=== PATIENT | male | born 1945 | race Caucasian/White ===

== ENCOUNTER 2016-11-22 17:21 | Emergency (ER) | payer MEDICARE ==
[2016-11-22] MEDS ORDERED: CLINDAMYCIN 150 MG CAP PO ONE ×2 (18:04)
--- NOTE | 2016-11-22 18:23 | Emergency Department Record ---
History of Present Illness - General Chief complaint: Extremity Problem Stated complaint: FINGER INJURY ON LT HAND Time Seen by Provider: 11/22/16 17:47 Source: Patient Mode of Arrival: Ambulatory Limitations: No limitations - History of Present Illness Initial comments: pt has a small area on l middle finger that was like a pimple that is getting more sore with spreading redness Complaint: Extremity pain, Extremity swelling Onset/Timin -: Days(s) Location: Left, Hand Severity scale (1-10): 4 Quality: Aching, Other Consistency: Constant Improves with: Nothing Worsens with: Palpation Associated Symptoms: Denies other symptoms - Related Data Home Medications Medication Instructions Recorded Confirmed Last Taken Aspirin [Aspirin EC] 81 mg PO DAILY 05/11/15 11/22/16 11/22/16 Atenolol 100 mg PO DAILY 05/11/15 11/22/16 11/22/16 Calcium Carbonate/Vitamin D3 1 each PO DAILY 05/11/15 11/22/16 11/22/16 [Caltrate 600 + D Tablet] Captopril [Capoten] 100 mg PO DAILY 05/11/15 11/22/16 11/22/16 Clonidine HCl 0.1 mg PO DAILY 05/11/15 11/22/16 11/22/16 Clopidogrel Bisulfate [Clopidogrel] 75 mg PO DAILY 05/11/15 11/22/16 11/22/16 Clotrimazole/Betamethasone Dip 45 gm TP ASDIR PRN 05/11/15 11/22/16 11/22/16 [Clotrimazole-Betamethasone Crm] Glyburide 5 mg PO BID 05/11/15 11/22/16 11/22/16 Insulin Detemir [Levemir Flextouch] 15 unit SQ QHS 05/11/15 11/22/16 11/22/16 Isosorbide Mononitrate [Imdur] 60 mg PO DAILY 05/11/15 11/22/16 11/22/16 Magnesium Oxide [Mag Ox] 400 mg PO DAILY 05/11/15 11/22/16 11/22/16 Metformin HCl [Metformin HCl ER] 1,000 mg PO BID 05/11/15 11/22/16 11/22/16 Multivit-Min/FA/Lycopene/Lut 1 each PO DAILY 05/11/15 11/22/1617 [Centrum Silver Tablet] [place], Insulin Disposable 1 each MC DAILY 05/11/15 11/22/16 11/22/16 [Novofine] Nitroglycerin [Nitrodur] 1 ea TD ASDIR PRN 05/11/15 11/22/16 Unknown [place]-3/Dha/Epa/Fish Oil [Fish Oil] 500 mg PO DAILY 05/11/15 11/22/16 11/22/16 Penicillin V Potassium 500 mg PO DAILY 05/11/15 11/22/16 11/22/16 Potassium Chloride [Klor-Con] 10 meq PO BID 05/11/15 11/22/16 11/22/16 Pravastatin Sodium [Pravachol] 40 mg PO DAILY 05/11/15 11/22/16 11/22/16 Previous Rx's Medication Instructions Recorded Clindamycin HCl [Cleocin HCl] 300 mg PO QID #40 capsule 11/22/16 Allergies Allergy/AdvReac Type Severity Reaction Status Date / Time No Known Drug Allergies Allergy Verified 05/11/15 11:52 Travel Screening - Travel/Exposure Within Last 30 Days Have you traveled within the last 30 days?: No - Travel/Exposure Within Last Year Have you traveled outside the [place] in the last year?: No - Additonal Travel Details Have you been exposed to anyone with a communicable illness?: No - Travel Symptoms Symptom Screening: None Review of Systems Reviewed: No additional complaints except as noted below Constitutional: Reports: As per HPI. Denies: Chills, Fever, Malaise, Night sweats, Weakness, Weight change Eyes: Reports: As per HPI. Denies: Eye discharge, Eye pain, Photophobia, Vision change ENT: Reports: As per HPI. Denies: Congestion, Dental pain, Ear pain, Epistaxis , Hearing loss, Throat pain Respiratory: Reports: As per HPI. Denies: Cough, Dyspnea, Hemoptysis, Stridor, Wheezes Cardiovascular: Reports: As per HPI. Denies: Arrhythmia, Chest pain, Dyspnea on exertion, Edema, Murmurs, Orthopnea, Palpitations, Paroxysmal nocturnal dyspnea, Rheumatic Fever, Syncope Endocrine: Reports: As per HPI. Denies: Fatigue, Heat or cold intolerance, Polydipsia, Polyuria Gastrointestinal: Reports: As per HPI. Denies: Abdominal pain, Constipation, Diarrhea, Hematemesis, Hematochezia, Melena, Nausea, Vomiting Genitourinary: Reports: As per HPI. Denies: Dysuria, Frequency, Hematuria, Incontinence, Retention, Testicular pain, Testicular mass, Urgency Musculoskeletal: Reports: As per HPI. Denies: Arthralgia, Back pain, Gout, Joint swelling, Myalgia, Neck pain Skin: Reports: As per HPI. Denies: Bruising, Change in color, Change in hair/ nails, Lesions, Pruritus, Rash Neurological: Reports: As per HPI. Denies: Abnormal gait, Confusion, Headache, Numbness, Paresthesias, Seizure, Tingling, Tremors, Vertigo, Weakness Psychiatric: Reports: As per HPI. Denies: Anxiety, Auditory hallucinations, Depression, Homicidal thoughts, Suicidal thoughts, Visual hallucinations Hematological/Lymphatic: Reports: As per HPI. Denies: Anemia, Blood Clots, Easy bleeding, Easy bruising, Swollen glands Past Medical History - SOCIAL HISTORY Smoking Status: Former smoker Alcohol Use: None Drug Use: None - RESPIRATORY Hx Respiratory Disorders: No - CARDIOVASCULAR Hx Cardio Disorders: Yes Hx Cardiac Cath: Yes Hx Heart Attack: Yes Hx Hypertension: Yes Hx Coronary Artery Bypass Graft: Yes (x4) - NEURO Hx Neuro Disorders: No - GI Hx GI Disorders: Yes Hx of Polyps: Yes - Hx Genitourinary Disorders: Yes Hx Bladder Problem: Yes (bladder infection -> cystoscopy) - ENDOCRINE Hx Endocrine Disorders: Yes - MUSCULOSKELETAL Hx Musculoskeletal Disorders: No - PSYCH Hx Psych Problems: No - HEMATOLOGY/ONCOLOGY Hx Hematology/Oncology Disorders: Yes Hx Bruising: Yes (plavix) Family Medical History Any Significant Family History?: No Hx Cancer: Mother *Cancer Comment: lung Hx Diabetes: Grandparents Hx Heart Disease: Father *Heart Comment: [place] Physical Exam - General General Appearance: Alert, Oriented x3, Cooperative, Mild distress - Head Head exam: Normal inspection - Eye Eye exam: Normal appearance, PERRL, EOMI Pupils: Normal accommodation - ENT ENT exam: Normal exam, Mucous membranes moist, Normal external ear exam, Normal orophraynx Ear exam: Normal external inspection. negative: External canal tenderness Nasal Exam: Normal inspection. negative: Discharge, Sinus tenderness Mouth exam: Normal external inspection, Tongue normal Teeth exam: Normal inspection. negative: Dental caries Throat exam: Normal inspection. negative: Tonsillar erythema, Tonsillar exudate - Neck Neck exam: Normal inspection, Full ROM. negative: Tenderness - Respiratory Respiratory exam: Normal lung sounds bilaterally. negative: Respiratory distress - Cardiovascular Cardiovascular Exam: Regular rate, Normal rhythm, Normal heart sounds - GI/Abdominal GI/Abdominal exam: Soft, Normal bowel sounds. negative: Tenderness - Rectal Rectal exam: Deferred - exam: Deferred - Extremities Extremities exam: Normal inspection, Full ROM, Normal capillary refill, Tenderness, Other (erythema, mild swelling) Image of Hand: 1 - swelling w small pustule, tender - Back Back exam: Reports: Normal inspection, Full ROM. Denies: Muscle spasm, Rash noted, Tenderness - Neurological Neurological exam: Alert, CN II-XII intact, Normal gait, Oriented X3 - Psychiatric Psychiatric exam: Normal affect, Normal mood - Skin Skin exam: Dry, Intact, Normal color, Warm Course Vital Signs 11/22/16 17:25 Temperature 98.3 F Pulse Rate 70 Respiratory 16 Rate Blood Pressure 186/92 Pulse Ox 98 Disposition Disposition: Discharge Clinical Impression: Cellulitis Qualifiers: Site of cellulitis: extremity Site of cellulitis of extremity: finger Laterality: left Qualified Code(s): L03.012 - Cellulitis of left finger Disposition: Home, Self-Care Condition: (1) Good Instructions: Cellulitis (ED) Additional Instructions: recheck in the morning. return sooner if worse Prescriptions: Clindamycin HCl [Cleocin HCl] 300 mg PO QID #40 capsule Forms: Patient Portal Access
== END 2016-11-22 18:41 | disposition home or self-care (01) ==
LOC: ER 17:21
DX: L03.012 Cellulitis of left finger (principal)
CPT/HCPCS: 99283

== ENCOUNTER 2016-11-23 06:59 | Emergency (ER) | payer MEDICARE ==
[2016-11-23] MEDS ORDERED: CLINDAMYCIN 150 MG CAP PO ONE (07:13)
--- NOTE | 2016-11-23 07:16 | Emergency Department Record ---
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 Patient reports mild increase in the swelling to the dorsum of the hand since being seen last night, reports redness has not spread however. Patient was started on oral Clindamyin yesterday. Patient denies fevers, chills, or weakness symptoms. Patient does report history of Type I DM. MD Complaint: Wound re-check Onset/Timin -: Days(s) Initial Visit For: Cellulitis Returns Today for: Wound recheck Symptoms Since Prior Visit: Worsening swelling Associated Symptoms: None - Related Data Home Medications Medication Instructions Recorded Confirmed Last Taken Aspirin [Aspirin EC] 81 mg PO DAILY 05/11/15 11/23/16 11/22/16 Atenolol 100 mg PO DAILY 05/11/15 11/23/16 11/22/16 Calcium Carbonate/Vitamin D3 1 each PO DAILY 05/11/15 11/23/16 11/22/16 [Caltrate 600 + D Tablet] Captopril [Capoten] 100 mg PO DAILY 05/11/15 11/23/16 11/22/16 Clonidine HCl 0.1 mg PO DAILY 05/11/15 11/23/16 11/22/16 Clopidogrel Bisulfate [Clopidogrel] 75 mg PO DAILY 05/11/15 11/23/16 11/22/16 Clotrimazole/Betamethasone Dip 45 gm TP ASDIR PRN 05/11/15 11/23/16 11/22/16 [Clotrimazole-Betamethasone Crm] Glyburide 5 mg PO BID 05/11/15 11/23/16 11/22/16 Insulin Detemir [Levemir Flextouch] 15 unit SQ QHS 05/11/15 11/23/16 11/22/16 Isosorbide Mononitrate [Imdur] 60 mg PO DAILY 05/11/15 11/23/16 11/22/16 Magnesium Oxide [Mag Ox] 400 mg PO DAILY 05/11/15 11/23/1617 Metformin HCl [Metformin HCl ER] 1,000 mg PO BID 05/11/15 11/23/16 11/22/16 Multivit-Min/FA/Lycopene/Lut 1 each PO DAILY 05/11/15 11/23/16 11/22/16 [Centrum Silver Tablet] [place], Insulin Disposable 1 each MC DAILY 05/11/15 11/23/16 11/22/16 [Novofine] Nitroglycerin [Nitrodur] 1 ea TD ASDIR PRN 05/11/15 11/23/16 11/22/16 [place]-3/Dha/Epa/Fish Oil [Fish Oil] 500 mg PO DAILY 05/11/15 11/23/16 11/22/16 Penicillin V Potassium 500 mg PO DAILY 05/11/15 11/23/16 11/22/16 Potassium Chloride [Klor-Con] 10 meq PO BID 05/11/15 11/23/16 11/22/16 Pravastatin Sodium [Pravachol] 40 mg PO DAILY 05/11/15 11/23/16 11/22/16 Previous Rx's Medication Instructions Recorded Clindamycin HCl [Cleocin HCl] 300 mg PO QID #40 capsule 11/22/16 Allergies Allergy/AdvReac Type Severity Reaction Status Date / Time No Known Drug Allergies Allergy Verified 05/11/15 11:52 Travel Screening - Travel/Exposure Within Last 30 Days Have you traveled within the last 30 days?: No - Travel/Exposure Within Last Year Have you traveled outside the [place] in the last year?: No - Additonal Travel Details Have you been exposed to anyone with a communicable illness?: No - Travel Symptoms Symptom Screening: None Review of Systems Constitutional: Denies: Chills, Fever, Malaise, Night sweats Eyes: Denies: Eye discharge, Eye pain, Photophobia ENT: Denies: Congestion, Ear pain, Epistaxis Respiratory: Denies: Cough, Dyspnea, Hemoptysis Cardiovascular: Denies: Chest pain, Dyspnea on exertion Endocrine: Denies: Fatigue, Heat or cold intolerance Gastrointestinal: Denies: Abdominal pain, Nausea, Vomiting Genitourinary: Denies: Incontinence, Retention Musculoskeletal: Denies: Arthralgia, Back pain Skin: Reports: Rash. Denies: Bruising, Change in color Neurological: Denies: Abnormal gait, Confusion, Headache Psychiatric: Denies: Anxiety Hematological/Lymphatic: Denies: Anemia, Blood Clots Past Medical History - SOCIAL HISTORY Smoking Status: Former smoker Alcohol Use: None Drug Use: None - RESPIRATORY Hx Respiratory Disorders: No - CARDIOVASCULAR Hx Cardio Disorders: Yes Hx Cardiac Cath: Yes Hx Heart Attack: Yes Hx Hypertension: Yes Hx Coronary Artery Bypass Graft: Yes (x4) - NEURO Hx Neuro Disorders: No - GI Hx GI Disorders: Yes Hx of Polyps: Yes - Hx Genitourinary Disorders: Yes Hx Bladder Problem: Yes (bladder infection -> cystoscopy) - ENDOCRINE Hx Endocrine Disorders: Yes - MUSCULOSKELETAL Hx Musculoskeletal Disorders: No - PSYCH Hx Psych Problems: No - HEMATOLOGY/ONCOLOGY Hx Hematology/Oncology Disorders: Yes Hx Bruising: Yes (plavix) Family Medical History Any Significant Family History?: No Hx Cancer: Mother *Cancer Comment: lung Hx Diabetes: Grandparents Hx Heart Disease: Father *Heart Comment: [place] Physical Exam - General General Appearance: Alert, Oriented x3, Cooperative, No acute distress Limitations: No limitations - Head Head exam: Atraumatic, Normocephalic, Normal inspection Head exam detail: negative: Abrasion, Contusion, Gallo's sign, General tenderness, Hematoma, Laceration - Eye Eye exam: Normal appearance. negative: Conjunctival injection, Periorbital swelling, Periorbital tenderness, Scleral icterus - ENT Ear exam: negative: Auricular hematoma, Auricular trauma Nasal Exam: negative: Active bleeding, Discharge, Dried blood Mouth exam: negative: Drooling, Laceration, Muffled voice, Tongue elevation - Neck Neck exam: Normal inspection. negative: Meningismus, Tenderness - Respiratory Respiratory exam: Normal lung sounds bilaterally. negative: Respiratory distress, Rhonchi, Stridor, Wheezes - Cardiovascular Cardiovascular Exam: Regular rate, Normal rhythm, Normal heart sounds Peripheral Pulses: 3+: Radial (L) - GI/Abdominal GI/Abdominal exam: Soft. negative: Rebound, Rigid, Tenderness - Rectal Rectal exam: Deferred - exam: Deferred - Extremities Extremities exam: Tenderness, Other (Mild STS and erythema to the left middle digit with a small lesion draining clear fluid present, STS extends to the mid- dorsum of the left hand. No evidence for tenosynovitis to the finger on examination, and compartments are soft on examination. FROM of all digits on examination as well.). negative: Calf tenderness, Pedal edema - Back Back exam: Denies: CVA tenderness (R), CVA tenderness (L) - Neurological Neurological exam: Alert, Normal gait, Oriented X3 - Psychiatric Psychiatric exam: Normal affect, Normal mood - Skin Skin exam: Erythema. negative: Abrasion Type of lesion: negative: abrasion Course Vital Signs 11/23/16 07:02 Temperature 97.9 F Pulse Rate 73 Respiratory 16 Rate Pulse Ox 96 - Reevaluation(s) Reevaluation #1: 11/23/16 07:21 Patient seen and examined, reports STS is mildly worsened, however erythema has not traveled more proximally or spread. Patient has no signs of tenosynovitis on examination. Patient appears stable for discharge home with instructions to continue clindamycin 4 times daily with a instructions to return to ED in 24 hours for repeat evaluation. Patient agrees with the plan as discussed. Disposition Disposition: Discharge Clinical Impression: Cellulitis Qualifiers: Site of cellulitis: extremity Site of cellulitis of extremity: upper extremity Laterality: left Qualified Code(s): L03.114 - Cellulitis of left upper limb Disposition: Home, Self-Care Condition: (2) Stable Instructions: Cellulitis (ED) Additional Instructions: Return to ED in 24 hours for a recheck on your hand infection, sooner if symptoms worsen. Clindamycin as directed. Follow-up with your family doctor in 1-3 days as directed. Forms: Patient Portal Access Time of Disposition: 07:15
== END 2016-11-23 07:28 | disposition home or self-care (01) ==
LOC: ER 06:59
DX: L03.012 Cellulitis of left finger (principal)
CPT/HCPCS: 99282

== ENCOUNTER 2016-11-24 08:06 | Emergency (ER) | payer MEDICARE ==
--- NOTE | 2016-11-24 08:12 | Emergency Department Record ---
History of Present Illness - General Chief Complaint: Recheck - Other Stated Complaint: RECHECK HAND Time Seen by Provider: 11/24/16 08:11 Source: Patient Mode of arrival: Ambulatory Limitations: No limitations - History of Present Illness Initial Comments: 71 yo male returns for repeat evaluation of an infection involving his left hand. Patient reports that his symptoms began as a "pimple" to the left middle digit, had spread to the dorsum of his left hand with symptoms of swelling and redness. Patient has been taking Clindamycin for his symptoms, denies any worsening of his symptoms since his evaluation 24 hours ago, denies fevers, chills, or other systemic symptoms. MD Complaint: Wound re-check Onset/Timin -: Days(s) Initial Visit For: Cellulitis Returns Today for: Cellulitis follow-up Symptoms Since Prior Visit: No new symptoms Associated Symptoms: None Treatments Prior to Arrival: Given antibiotics on initial visit - Related Data Home Medications Medication Instructions Recorded Confirmed Last Taken Aspirin [Aspirin EC] 81 mg PO DAILY 05/11/15 11/23/16 11/22/16 Atenolol 100 mg PO DAILY 05/11/15 11/23/16 11/22/16 Calcium Carbonate/Vitamin D3 1 each PO DAILY 05/11/15 11/23/16 11/22/16 [Caltrate 600 + D Tablet] Captopril [Capoten] 100 mg PO DAILY 05/11/15 11/23/16 11/22/16 Clonidine HCl 0.1 mg PO DAILY 05/11/15 11/23/16 11/22/16 Clopidogrel Bisulfate [Clopidogrel] 75 mg PO DAILY 05/11/15 11/23/16 11/22/16 Clotrimazole/Betamethasone Dip 45 gm TP ASDIR PRN 05/11/15 11/23/16 11/22/16 [Clotrimazole-Betamethasone Crm] Glyburide 5 mg PO BID 05/11/15 11/23/16 11/22/16 Insulin Detemir [Levemir Flextouch] 15 unit SQ QHS 05/11/15 11/23/16 11/22/16 Isosorbide Mononitrate [Imdur] 60 mg PO DAILY 05/11/15 11/23/16 11/22/16 Magnesium Oxide [Mag Ox] 400 mg PO DAILY 05/11/15 11/23/16 11/22/16 Metformin HCl [Metformin HCl ER] 1,000 mg PO BID 05/11/15 11/23/16 11/22/16 Multivit-Min/FA/Lycopene/Lut 1 each PO DAILY 05/11/15 11/23/16 11/22/16 [Centrum Silver Tablet] [place], Insulin Disposable 1 each MC DAILY 05/11/15 11/23/16 11/22/16 [Novofine] Nitroglycerin [Nitrodur] 1 ea TD ASDIR PRN 05/11/15 11/23/16 11/22/16 [place]-3/Dha/Epa/Fish Oil [Fish Oil] 500 mg PO DAILY 05/11/15 11/23/16 11/22/16 Penicillin V Potassium 500 mg PO DAILY 05/11/15 11/23/16 11/22/16 Potassium Chloride [Klor-Con] 10 meq PO BID 05/11/15 11/23/16 11/22/16 Pravastatin Sodium [Pravachol] 40 mg PO DAILY 05/11/15 11/23/16 11/22/16 Previous Rx's Medication Instructions Recorded Clindamycin HCl [Cleocin HCl] 300 mg PO QID #40 capsule 11/22/16 Allergies Allergy/AdvReac Type Severity Reaction Status Date / Time No Known Drug Allergies Allergy Verified 05/11/15 11:52 Review of Systems Constitutional: Denies: Chills, Fever, Malaise, Night sweats, Weakness Eyes: Denies: Eye discharge, Eye pain ENT: Denies: Congestion, Ear pain Respiratory: Denies: Cough, Dyspnea Cardiovascular: Denies: Chest pain, Dyspnea on exertion Endocrine: Denies: Fatigue, Heat or cold intolerance Gastrointestinal: Denies: Nausea, Vomiting Genitourinary: Denies: Incontinence, Retention Musculoskeletal: Denies: Arthralgia, Back pain, Gout, Joint swelling Skin: Reports: Rash. Denies: Bruising, Change in color Neurological: Denies: Abnormal gait, Confusion, Headache, Seizure Psychiatric: Denies: Anxiety Hematological/Lymphatic: Denies: Anemia, Blood Clots Past Medical History - SOCIAL HISTORY Smoking Status: Former smoker Drug Use: None - RESPIRATORY Hx Respiratory Disorders: No - CARDIOVASCULAR Hx Cardio Disorders: Yes Hx Cardiac Cath: Yes Hx Heart Attack: Yes Hx Hypertension: Yes Hx Coronary Artery Bypass Graft: Yes (x4) - NEURO Hx Neuro Disorders: No - GI Hx GI Disorders: Yes Hx of Polyps: Yes - Hx Genitourinary Disorders: Yes Hx Bladder Problem: Yes (bladder infection -> cystoscopy) - ENDOCRINE Hx Endocrine Disorders: Yes - MUSCULOSKELETAL Hx Musculoskeletal Disorders: No - PSYCH Hx Psych Problems: No - HEMATOLOGY/ONCOLOGY Hx Hematology/Oncology Disorders: Yes Hx Bruising: Yes (plavix) Family Medical History Hx Cancer: Mother *Cancer Comment: lung Hx Diabetes: Grandparents Hx Heart Disease: Father *Heart Comment: [place] Physical Exam - General General Appearance: Alert, Oriented x3, Cooperative, No acute distress Limitations: No limitations - Head Head exam: Atraumatic, Normocephalic, Normal inspection Head exam detail: negative: Abrasion, Contusion, Gallo's sign, General tenderness, Hematoma, Laceration - Eye Eye exam: Normal appearance. negative: Conjunctival injection, Periorbital swelling, Periorbital tenderness, Scleral icterus - ENT Ear exam: negative: Auricular hematoma, Auricular trauma Nasal Exam: negative: Active bleeding, Discharge, Dried blood, Foreign body Mouth exam: negative: Drooling, Laceration, Muffled voice, Tongue elevation - Neck Neck exam: Normal inspection. negative: Meningismus, Tenderness - Respiratory Respiratory exam: Normal lung sounds bilaterally. negative: Rales, Respiratory distress, Rhonchi, Stridor - Cardiovascular Cardiovascular Exam: Regular rate, Normal rhythm, Normal heart sounds - GI/Abdominal GI/Abdominal exam: Soft. negative: Rebound, Rigid, Tenderness - Rectal Rectal exam: Deferred - exam: Deferred - Extremities Extremities exam: Tenderness, Other (Improved erythema and STS to the dorsum of the left hand, small focal area of erythema to the middle digit without abscess present. No evidence for tenosynovitis on examination, FROM present. Compartments are soft on examination.). negative: Calf tenderness, Pedal edema - Back Back exam: Denies: CVA tenderness (R), CVA tenderness (L) - Neurological Neurological exam: Alert, Normal gait, Oriented X3 - Psychiatric Psychiatric exam: Normal affect, Normal mood - Skin Skin exam: Erythema, Intact, Warm Type of lesion: Other (cellulutis) Distribution of rash: LUE Description of rash: Confluent Course - Reevaluation(s) Reevaluation #1: 11/24/16 08:16 Symptoms appears mildly improved from examination 24 hours prior, no evidence for tenosynovitis on examination. Patient appears stable for discharge with continued outpatient treatment with return for any worsening of his symptoms and instructions to follow-up with his PCP in 3-5 days as directed. Disposition Disposition: Discharge Clinical Impression: Cellulitis Qualifiers: Site of cellulitis: extremity Site of cellulitis of extremity: upper extremity Laterality: left Qualified Code(s): L03.114 - Cellulitis of left upper limb Instructions: Cellulitis (ED) Additional Instructions: Return to ED if your symptoms worsen or if you have any concerns. Follow-up with your family doctor in 3-5 days as directed. Continue Clindamycin as prescribed. Forms: Patient Portal Access Time of Disposition: 08:12
== END 2016-11-24 08:21 | disposition home or self-care (01) ==
LOC: ER 08:06
DX: L03.012 Cellulitis of left finger (principal)
CPT/HCPCS: 99282

== ENCOUNTER 2017-05-23 19:57 | Emergency (ER) | payer MEDICARE ==
[2017-05-23] MEDS ORDERED: CEPHALEXIN 500 MG CAPSULE PO STA ×2 (20:18→20:29)
--- NOTE | 2017-05-23 20:18 | Emergency Department Record ---
History of Present Illness - General Chief complaint: Lower Extremity Pain Stated complaint: RIGHT LEG PAIN Time Seen by Provider: 05/23/17 20:11 Source: Patient Mode of Arrival: Ambulatory Limitations: No limitations - History of Present Illness Initial comments: 71 yo male presents with an injury to the right leg 4 days ago. He backed into a picnic table. He had a bruise/hematoma to the posterior lower leg. He has a history of prior cellulitis. He noted some leg redness and warmth. No definite fevers. No other cough, shortness or breath, chest pain, nausea, vomiting, diarrhea, dysuria. No numbness, weakness, or changes in function. He has a small superfical blood blister on the posterior leg. No drainage. He is on Plavix and prone to bruising. MD Complaint: Extremity pain Onset/Timin -: Days(s) Location: Right, Lower Leg History of Same: Yes Radiation: None Severity scale (1-10): 6 Quality: Aching Consistency: Constant Improves with: Cold therapy, Elevation Worsens with: Walking, Weight bearing Associated Symptoms: Fever - Related Data Previous Rx's Medication Instructions Recorded Cephalexin [Keflex] 500 mg PO QID #40 cap 05/23/17 Allergies Allergy/AdvReac Type Severity Reaction Status Date / Time No Known Drug Allergies Allergy Unverified 02/11/17 12:48 Travel Screening - Travel/Exposure Within Last 30 Days Have you traveled within the last 30 days?: No - Travel/Exposure Within Last Year Have you traveled outside the [place] in the last year?: No - Additonal Travel Details Have you been exposed to anyone with a communicable illness?: No - Travel Symptoms Symptom Screening: None Review of Systems Constitutional: Denies: Chills, Fever, Malaise, Weakness Eyes: Denies: Eye discharge ENT: Denies: Congestion, Throat pain Respiratory: Denies: Cough, Dyspnea, Hemoptysis Cardiovascular: Denies: Chest pain, Palpitations, Syncope Endocrine: Denies: Fatigue, Polydipsia, Polyuria Gastrointestinal: Denies: Abdominal pain, Diarrhea, Nausea, Vomiting Genitourinary: Denies: Dysuria, Frequency, Hematuria Musculoskeletal: Reports: As per HPI, Myalgia. Denies: Arthralgia, Back pain, Neck pain Skin: Reports: As per HPI, Bruising, Change in color Neurological: Denies: Headache, Numbness, Weakness Psychiatric: Denies: Anxiety Hematological/Lymphatic: Denies: Blood Clots, Easy bleeding, Easy bruising, Swollen glands Past Medical History - SOCIAL HISTORY Smoking Status: Former smoker Alcohol Use: Occasional Drug Use: None - RESPIRATORY Hx Respiratory Disorders: No - CARDIOVASCULAR Hx Cardio Disorders: Yes Hx Cardiac Cath: Yes Hx Heart Attack: Yes Hx Hypertension: Yes Hx Coronary Artery Bypass Graft: Yes (x4) - NEURO Hx Neuro Disorders: No - GI Hx GI Disorders: Yes Hx of Polyps: Yes - Hx Genitourinary Disorders: Yes Hx Bladder Problem: Yes (bladder infection -> cystoscopy) - ENDOCRINE Hx Endocrine Disorders: Yes - MUSCULOSKELETAL Hx Musculoskeletal Disorders: No - PSYCH Hx Psych Problems: No - HEMATOLOGY/ONCOLOGY Hx Hematology/Oncology Disorders: Yes Hx Bruising: Yes (plavix) Family Medical History Any Significant Family History?: No Hx Cancer: Mother *Cancer Comment: lung Hx Diabetes: Grandparents Hx Heart Disease: Father *Heart Comment: [place] Physical Exam - General General Appearance: Alert, Oriented x3, Cooperative, No acute distress Limitations: No limitations - Head Head exam: Atraumatic, Normocephalic, Normal inspection - Eye Eye exam: Normal appearance. negative: Conjunctival injection, Periorbital swelling - ENT ENT exam: Normal exam Ear exam: Normal external inspection Nasal Exam: Normal inspection - Neck Neck exam: Normal inspection, Full ROM. negative: Tenderness - Respiratory Respiratory exam: Normal lung sounds bilaterally. negative: Respiratory distress - Cardiovascular Cardiovascular Exam: Regular rate, Normal rhythm, Normal heart sounds Peripheral Pulses: 2+: Radial (L) - Rectal Rectal exam: Deferred - exam: Deferred - Extremities Extremities exam: Full ROM, Normal capillary refill, Pedal edema (mild), Tenderness (mild at the bruising site). negative: Normal inspection, Calf tenderness, Joint swelling Image of Full Body: 1 - Bruising to the proximal calf with quarter size superfical blister, mild calf swelling with warmth and mild erythema, no pain with foot flexion, negative Quinton's sign, intact brisk pulses, intact sensation - Back Back exam: Denies: CVA tenderness (R), CVA tenderness (L) - Neurological Neurological exam: Alert, Oriented X3 - Psychiatric Psychiatric exam: negative: Agitated, Anxious - Skin Skin exam: Other (Bruising and erythema) Course Vital Signs 05/23/17 20:01 Temperature 99.7 F H Pulse Rate 77 Respiratory 20 Rate Blood Pressure 155/82 Pulse Ox 100 - Reevaluation(s) Reevaluation #1: The examination is consistent with an early mild cellulitis, no signs of DVT, he has bruising and mild swelling likely from being on Plavix and aspirin, no signs of compartment syndrome, The patient was given Keflex in the ED He has follow at Thursday. He will return if there is any worsening or new concerns. 05/23/17 20:25 05/23/17 20:29 Disposition Disposition: Discharge Clinical Impression: Cellulitis Qualifiers: Site of cellulitis: extremity Site of cellulitis of extremity: lower extremity Laterality: right Qualified Code(s): L03.115 - Cellulitis of right lower limb Disposition: Home, Self-Care Condition: (1) Good Instructions: Cellulitis (ED) Additional Instructions: Return to the ER if you have fever, increased redness, warmth, swelling or any other new symptoms or concerns Follow up on Thursday as scheduled Take the Keflex every 6 hours Prescriptions: Cephalexin [Keflex] 500 mg PO QID #40 cap Forms: Patient Portal Access Time of Disposition: 20:26 Quality - Quality Measures Quality Measures: N/A - Blood Pressure Screening Does Patient Have Any of the Following: No Blood Pressure Classification: Pre-Hypertensive BP Reading Systolic Measurement: 155 Diastolic Measurement: 82 Screening for High Blood Pressure: < Pre-Hypertensive BP, F/U Documented > [ G8950] Pre-Hypertensive Follow-up Interventions: Referral to alternative/primary care provider.
== END 2017-05-23 20:49 | disposition home or self-care (01) ==
LOC: ER 19:57
DX: L03.115 Cellulitis of right lower limb (principal); M79.661 Pain in right lower leg
CPT/HCPCS: 99282

== ENCOUNTER 2017-05-28 22:48 | Emergency (ER) | payer MEDICARE ==
[2017-05-28] MEDS ORDERED: IPRATROPIUM/ALBUTEROL (0.5MG/3MG) NEB INH ONE (23:01)
[2017-05-28] MEDS ORDERED: METHYLPREDNISOLONE PF 125MG/VIAL IVP ONE (23:12)
[2017-05-28] MEDS ORDERED: 0.9 % SODIUM CHLORIDE 1000ML 1,000 ML IV SCH (23:15)
--- NOTE | 2017-05-28 23:18 | Emergency Department Record ---
History of Present Illness - General Chief Complaint: Cough Stated Complaint: COUGH AND CARTER Time Seen by Provider: 05/28/17 23:06 Source: Patient Mode of Arrival: Ambulatory Limitations: No limitations - History of Present Illness Initial Comments: 71 yo male presents to ED with a CC of cough, difficulty in breathing symptoms tonight. Patient reports progressively worsening congestion symptoms for the past several days. Patient repoerts recent fever, non-productive cough symptoms. Patient also reports that he is currently being treated for cellulitis of the RLE (has had numerous episodes of similar cellulitis previously) on Keflex and Bactrim currently. Patient also reports several previous heart attacks, s/p CABG. Patient denies previous lung problems. MD Complaint: Cough, Fever, Other (CARTER) Onset/Timin -: Hour(s) Severity: Moderate Consistency: Constant, Getting worse Improves With: Nothing Worsens With: Activity Associated Symptoms: Cough, Fever, Shortness of breath Treatments Prior to Arrival: None - Related Data Previous Rx's Medication Instructions Recorded Cephalexin [Keflex] 500 mg PO QID #40 cap 05/23/17 Allergies Allergy/AdvReac Type Severity Reaction Status Date / Time No Known Drug Allergies Allergy Unverified 02/11/17 12:48 Travel Screening - Travel/Exposure Within Last 30 Days Have you traveled within the last 30 days?: No Review of Systems Constitutional: Reports: Fever, Malaise. Denies: Chills, Night sweats Eyes: Denies: Eye discharge, Eye pain ENT: Reports: Congestion. Denies: Ear pain, Epistaxis Respiratory: Reports: Cough, Dyspnea, Wheezes Cardiovascular: Reports: Dyspnea on exertion. Denies: Chest pain, Edema Endocrine: Denies: Fatigue, Heat or cold intolerance Gastrointestinal: Denies: Abdominal pain, Nausea, Vomiting Genitourinary: Denies: Incontinence, Retention Musculoskeletal: Denies: Arthralgia, Back pain, Gout, Joint swelling Skin: Denies: Bruising, Change in color Neurological: Denies: Abnormal gait, Confusion, Headache, Seizure Psychiatric: Denies: Anxiety Hematological/Lymphatic: Denies: Anemia, Blood Clots Past Medical History - SOCIAL HISTORY Smoking Status: Former smoker Alcohol Use: None Drug Use: None - RESPIRATORY Hx Respiratory Disorders: No - CARDIOVASCULAR Hx Cardio Disorders: Yes Hx Cardiac Cath: Yes Hx Heart Attack: Yes Hx Hypertension: Yes Hx Coronary Artery Bypass Graft: Yes (x4) - NEURO Hx Neuro Disorders: No - GI Hx GI Disorders: Yes Hx of Polyps: Yes - Hx Genitourinary Disorders: Yes Hx Bladder Problem: Yes (bladder infection -> cystoscopy) - ENDOCRINE Hx Endocrine Disorders: Yes - MUSCULOSKELETAL Hx Musculoskeletal Disorders: No - PSYCH Hx Psych Problems: No - HEMATOLOGY/ONCOLOGY Hx Hematology/Oncology Disorders: Yes Hx Bruising: Yes (plavix) Family Medical History Any Significant Family History?: Yes Hx Cancer: Mother *Cancer Comment: lung Hx Diabetes: Grandparents Hx Heart Disease: Father *Heart Comment: [place] Physical Exam - General General Appearance: Alert, Oriented x3, Cooperative, Moderate distress Limitations: No limitations - Head Head exam: Atraumatic, Normocephalic, Normal inspection Head exam detail: negative: Abrasion, Contusion, Gallo's sign, General tenderness, Hematoma, Laceration - Eye Eye exam: Normal appearance. negative: Conjunctival injection, Periorbital swelling, Periorbital tenderness, Scleral icterus - ENT Ear exam: negative: Auricular hematoma, Auricular trauma Nasal Exam: negative: Active bleeding, Discharge, Dried blood, Foreign body Mouth exam: negative: Drooling, Laceration, Muffled voice, Tongue elevation - Neck Neck exam: Normal inspection. negative: Meningismus, Tenderness - Respiratory Respiratory exam: Decreased breath sounds, Respiratory distress. negative: Rales, Rhonchi, Stridor - Cardiovascular Cardiovascular Exam: Regular rate, Normal rhythm, Normal heart sounds - GI/Abdominal GI/Abdominal exam: Soft. negative: Rebound, Rigid, Tenderness - Rectal Rectal exam: Deferred - exam: Deferred - Extremities Extremities exam: Calf tenderness, Pedal edema, Tenderness, Other (TTP, erythema to the RLE c/w cellulitis, denies previous DVT history) - Back Back exam: Denies: CVA tenderness (R), CVA tenderness (L) - Neurological Neurological exam: Alert, Normal gait, Oriented X3 - Psychiatric Psychiatric exam: Normal affect, Normal mood - Skin Skin exam: Erythema (RLE). negative: Abrasion Type of lesion: negative: abrasion Course Vital Signs 05/28/17 23:03 Temperature 98.9 F Pulse Rate [ 87 Pulse Ox Probe] Respiratory 22 Rate Blood Pressure 163/94 [Left Arm] Pulse Ox 95 - Reevaluation(s) Reevaluation #1: 05/28/17 23:28 EKG: NSR 86 LAD, IVCD T Wave inversions I, AVL, ST depression V3-V6 No significant change from 04/28/2014 05/29/17 00:53 Reevaluation #2: 05/28/17 23:55 CXR: RLL infiltrate Zithromax and Rocephin ordered to infuse. Labs pending at this time. Reevaluation #3: 05/29/17 00:06 Labs reviewed, WBC 16.1, BUN 80.8/Creatinine 2.0 (at baseline), Glucose 358, BNP 9982. Will admit for further evaluation. Reevaluation #4: 05/29/17 00:16 Patient developing worsening chest pain symptoms, ASA and Nitro SL ordered, repeat EKG obtained: EKG#2 NSR 87 LAD, IVCD ST depression V3-V6 worsened from initial EKG [facility]-call contacted for Cardiology consultation and likely transfer. 05/29/17 01:16 Reevaluation #5: 05/29/17 00:35 Patient's CP symptoms resolved with Nitro x 2, Heparin bolus ordered. 05/29/17 00:42 Case was discussed with Dr. Garrido as well as Dr. East, Dr. Garrido will accept transfer. 05/29/17 00:52 3rd EKG (currently CP-free) NSR 86 LAD, IVCD ST depression V4-V6 improved from previous 05/29/17 01:15 EMS is present for transfer, patient resting CP-free. Medical Decision Making - Lab Data Result diagrams: 05/28/17 23:20 05/28/17 23:20 Critical Care Time Critical Care Time: Yes Total Critical Care Time: 45 Critical Care Time: Diagnosis and treatment of hypoxia, CAP, Unstable angina, serial EKGs and monitoring, initiation of transfer for cardiology consultation Disposition Disposition: Transfer Clinical Impression: Unstable angina CAP (community acquired pneumonia) Qualifiers: Laterality: right Lung location: lower lobe of lung Qualified Code(s): J18.1 - Lobar pneumonia, unspecified organism CHF (congestive heart failure) Qualifiers: Congestive heart failure type: unspecified congestive heart failure type Congestive heart failure chronicity: unspecified congestive heart failure chronicity Qualified Code(s): I50.9 - Heart failure, unspecified Chest pain Qualifiers: Chest pain type: unspecified Qualified Code(s): R07.9 - Chest pain, unspecified Disposition: Acute Care Hospital Transfer Transfer To: [facility] Reason For Transfer: CAP, Cardiology consultation Accepting Physician: Kita Garrido Time Discussed w/Accepting Physician: 00:43 Condition: (2) Stable Forms: Patient Portal Access Time of Disposition: 00:43 Quality - Quality Measures Quality Measures: N/A - Blood Pressure Screening Does Patient Have Any of the Following: Active Dx of HTN Blood Pressure Classification: Pre-Hypertensive BP Reading Systolic Measurement: 143 Diastolic Measurement: 81 Screening for High Blood Pressure: Patient Exclusion, Hx of HTN [G9744]
[2017-05-28 23:30] LABS: BASO % 0.2 % (0-6); EOS % 0.7 % (0-6); GRAN % 50.1 % (47-80); HEMATOCRIT 34.5 % (42.0-52.0); LYMPH % 42.7 % (16-45); MEAN CELL VOLUME 81.9 fl (81-97); MEAN CORPUSCULAR HEMOGLOBIN 26.1 pg (27-33); MEAN CORPUSCULAR HGB CONC 31.9 g/dl (32-36); MEAN PLATELET VOLUME 12.1 fl (7.4-10.4); MONO % 6.3 % (0-9); PLATELET COUNT 171 K/uL (130-400); RED BLOOD COUNT 4.21 M/uL (4.40-5.70); RED CELL DISTRIBUTION WIDTH 17.6 % (11.5-14.5); WHITE BLOOD COUNT W/O DIFF 16.1 K/uL (4.2-12.2)
[2017-05-28] MEDS ORDERED: CEFTRIAXONE SODIUM 1 GM in 0.9 % SODIUM CHLORIDE 100ML 100 ML IVPB ONE (23:53)
[2017-05-28] MEDS ORDERED: AZITHROMYCIN 500 MG in 0.9 % SODIUM CHLORIDE 250ML 250 ML IVPB ONE (23:53)
[2017-05-28 23:59] LABS: ALB/GLOB RATIO 1.2 (1.1-1.8); ALBUMIN 3.4 g/dL (4.0-5.0); ALKALINE PHOSPHATASE 115 U/L (40-129); ALT/SGPT 35 U/L (<41); AST/SGOT 58 U/L (10.0-50.0); BLOOD UREA NITROGEN 80.8 mg/dL (17.4-49.2); EST GLOMERULAR FILTRATION RATE 35 mL/min; GLUCOSE,RANDOM 358 mg/dL (74-109); TOTAL PROTEIN 6.2 g/dL (6.6-8.7)
[2017-05-29 00:01] LABS: TROPONIN I < 0.30 ng/mL (0.00-0.300)
[2017-05-29] MEDS ORDERED: ASPIRIN 81 MG CHEWABLE TABLET PO ONE (00:16)
[2017-05-29] MEDS: NITROGLYCERIN 0.4MG SL TABLET #25 BTL SL PRN ×2 (00:19→00:24)
[2017-05-29] MEDS ORDERED: HEPARIN SODIUM 1000 UNIT/1 ML 10ML VIAL IVP ONE ×2 (00:31→00:32)
[2017-05-29] MEDS ORDERED: HEPARIN SODIUM/D5W 25,000 UNITS/500 ML BAG IV SCH (00:45)
--- NOTE | 2017-05-29 10:48 | RADIOLOGY REPORT ---
EXAM: CHEST, TWO VIEWS HISTORY: DIFFICULTY IN BREATHING. TECHNIQUE: Frontal and lateral views of the chest were performed. FINDINGS: The heart size is normal. There is mild pulmonary vascular congestion. There are small bilateral pleural effusions. IMPRESSION: CARDIOMEGALY WITH MILD CONGESTIN AND SMALL PLEURAL EFFUSIONS. JOB NUMBER: [id number] [facility]
== END 2017-05-29 01:10 | disposition short-term general hospital (02) ==
LOC: ER 22:48
DX: J18.1 Lobar pneumonia, unspecified organism (principal); I20.0 Unstable angina; R06.00 Dyspnea, unspecified; I10 Essential (primary) hypertension; I50.9 Heart failure, unspecified; L03.115 Cellulitis of right lower limb; I25.2 Old myocardial infarction; Z87.891 Personal history of nicotine dependence
CPT/HCPCS: 71020; 80053; 83880; 84484; 85025; 93005; 93010; 94640; 96374; 96375; 99285; J0456; J2930; J7030; J7050

== ENCOUNTER 2018-02-04 09:23 | Day surgery (SDC) | payer MEDICARE ==
[2018-02-04] MEDS ORDERED: LIDOCAINE 2% MDV (20MG/ML) 20ML VIAL IV ONE (09:24)
[2018-02-04] MEDS ORDERED: FENTANYL PF 100MCG/2ML VIAL IV ONE (09:24)
[2018-02-04] MEDS ORDERED: PROPOFOL 10 MG/ML VIAL IV ONE (09:24)
--- NOTE | 2018-02-04 12:40 | Operative Note ---
DATE OF SURGERY: 02/04/2018 OPERATION: 1. ESOPHAGOGASTRODUODENOSCOPY. 2. COLONOSCOPY with cold snare polypectomy x2. PREOPERATIVE DIAGNOSIS: Episodic melena and iron deficiency anemia. POSTOPERATIVE DIAGNOSES: 1. Normal upper endoscopy. 2. Sigmoid diverticulosis. 3. Transverse colon polyps x2, status post cold snare removal. PROCEDURE: After informed consent was obtained from the patient, he was placed in the left lateral decubitus position in the endoscopy suite, sedated and monitored by the department of anesthesia. A well-lubricated [id number] gastroscope was placed in the posterior oropharynx and under direct visualization passed to the proximal esophagus. The endoscope was advanced through the proximal, mid, and distal esophagus. The GE junction, esophagus, gastric body, antrum, pylorus, duodenal bulb and sweep were unremarkable. No fresh or old blood or angiodysplastic lesions, ulcers, erosions, or mass lesions were seen. J-turn views of the proximal stomach were unremarkable. The endoscope was then straightened and retracted from the patient with no new findings noted. Digital rectal examination was unremarkable. A well-lubricated [id number] colonoscope was inserted into the rectum and advanced to the cecum. Preparation quality was good. The cecum, ileocecal valve, and appendiceal orifice were unremarkable. The ascending colon was unremarkable. In the proximal transverse colon there were 2 sessile polyps ranging in size from 3-5 mm removed with a cold snare with minimal blood loss noted at the sites. The polyps were retrieved. The remainder of the transverse colon, descending colon, sigmoid colon, and rectum were then inspected. There were moderate diverticular changes in the sigmoid colon. No fresh or old blood was seen throughout the length of the colon. Forward and J-turn views of the rectum and anorectum were unremarkable. The endoscope was straightened, the rectal ampulla deflated, and the endoscope was removed. RECOMMENDATIONS: I can see no obvious explanation for the patient's episodic melena as well as his iron deficiency anemia. I would recommend he undergo a small bowel capsule exam. I will have my office work on scheduling this. As always, thank you for allowing me to participate in the healthcare of your patients. CC: JERICA GONZALEZ MD, FACP Dr. Zach BUTTERFIELD
== END 2018-02-04 10:57 | disposition home or self-care (01) ==
LOC: HOP 09:23
PROVIDERS: ATTEND Internal Medicine Gastroenterology
DX: D12.3 Benign neoplasm of transverse colon (principal); K57.30 Diverticulosis of large intestine without perforation or abscess without bleeding; D50.9 Iron deficiency anemia, unspecified; E78.00 Pure hypercholesterolemia, unspecified; I10 Essential (primary) hypertension; E11.9 Type 2 diabetes mellitus without complications; Z79.84 Long term (current) use of oral hypoglycemic drugs; I25.2 Old myocardial infarction